=== PATIENT | female | born 1975 | race African-American/Black ===

== ENCOUNTER 2023-12-06 19:02 | Emergency (ER) | payer MEDICAID | END 2023-12-06 20:06 | disposition home or self-care (01) | LOC: NAV ERS 19:02 | DX: H61.23 Impacted cerumen, bilateral (principal); E11.9 Type 2 diabetes mellitus without complications; I10 Essential (primary) hypertension; Z79.4 Long term (current) use of insulin | CPT/HCPCS: 99282 ==